=== PATIENT | female | born 1945 | race Caucasian/White ===

== ENCOUNTER → 2016-09-11 | Outpatient (CLI) | payer OTHER ==
[~2016-09-11] MED LIST: ASPIR 8181 MG PO; ICAPS TABLET1 EACH PO; LOVENOX SY40 MG/0.4 SQ; MULTIVITAMINS1 EAC2 PO; NORCO 7.5-3251 EACH PO; SINGULAIR10 MG PO; ZYRTEC10 MG PO
[2016-09-11 15:49] LABS: HEMOGLOBIN 12.3 gm/dl (12.3-15.3); RED BLOOD COUNT 3.95 M/UL (4.00-5.10); WHITE BLOOD COUNT 6.8 K/UL (4.5-11.0)
[2016-09-11 16:07] LABS: BUN/CREATININE RATIO 17 (0-10)
== END ==
LOC: OPSV 13:20
PROVIDERS: Internal Medicine Infectious Disease
DX: L03.115 Cellulitis of right lower limb (principal)
CPT/HCPCS: 36415; 80053; 84146; 85025; 86140; G0463

== ENCOUNTER → 2016-10-04 | Outpatient (CLI) | payer OTHER | LOC: LAB 11:15 | DX: S80.921A Unspecified superficial injury of right lower leg, initial encounter (principal) | CPT/HCPCS: 36415; 86140 ==